=== PATIENT | male | born 1935 | race Caucasian/White ===

== ENCOUNTER 2020-09-20 16:20 | Inpatient (IN) ==
[2020-09-20] MEDS ORDERED: NS 0.9% 1000 ml BAG 1,000 ML IV ONE (18:16)
[2020-09-20] MEDS ORDERED: Labetalol IV 5 MG/ML 20 ml VIAL IV PUSH ONE ×2 (18:20→20:29)
[2020-09-20 18:35] LABS: ABS Eosinophils 0.1 10^3/ul (0-0.6); ABS Lymphocytes 0.6 10^3/ul (1.0-4.8); ABS Monocytes 0.4 10^3/ul (0-0.8); ABS Neutrophils 3.3 10^3/ul (1.5-7.7); Eosinophil % 1.2 %; Hematocrit 39 % (42-52); Hemoglobin 13.3 g/dL (14.0-18.0); Lymphocyte % 13.4 %; Mean Corpuscular HGB Conc 34 g/dL (31-36); Mean Corpuscular Hemoglobin 30 pg (27-31); Mean Corpuscular Volume 89 fL (80-94); Mean Platelet Volume 8.4 fL (7.4-10.4); Nucleated Red Blood Cells % 0.2; Platelet Count 167 10^3/uL (150-450); Red Blood Count 4.43 10^6 /uL (4.18-5.48); Red Cell Distribution Width 14 % (10-15); White Blood Count 4.4 10^3/uL (3.5-10.8)
[2020-09-20 18:43] LABS: Albumin 4.4 g/dL (3.2-5.2); Albumin/Globulin Ratio 1.5 (1-3); Calcium 9.5 mg/dL (8.6-10.3); EGFR African American 58.8 (>60); EGFR Non-African American 48.6 (>60); Magnesium 2.1 mg/dL (1.9-2.7); Potassium 3.8 mmol/L (3.5-5.0); Total Bilirubin 0.6 mg/dL (0.2-1.0); Total Protein 7.4 g/dL (6.4-8.9)
[2020-09-20 18:44] LABS: Troponin I 0.01 ng/mL (<0.03)
[2020-09-20 19:18] LABS: TSH Ultra Thyroid Stim Horm 3.77 mcIU/mL (0.34-5.60)
[2020-09-20] MEDS ORDERED: Iodixanol (CONTRAST) 320 MG/ML 100 ML SDV IV ONE (19:53)
[2020-09-20] MEDS ORDERED: Morphine 2 MG/ML SYRINGE IV PRN (22:38)
[2020-09-20] MEDS ORDERED: Ondansetron 4 mg VIAL 2 MG/ML 2 ml VIAL IV PRN (23:44)
[2020-09-20] MEDS ORDERED: NS 0.9% 1000 ml BAG 1,000 ML IV SCH (23:45)
[2020-09-21 01:43] LABS: Urine Appearance Clear; Urine Bilirubin Negative (Negative); Urine Blood Negative (Negative); Urine Color Yellow; Urine Glucose 1+(50 mg/dL) (Negative); Urine Ketones Negative (Negative); Urine Nitrite Negative (Negative); Urine Protein 3+(>=500 mg/dL) (Negative); Urine Specific Gravity 1.018 (1.002-1.030); Urine Urobilinogen Negative (Negative)
[2020-09-21 01:52] LABS: Urine Bacteria 1+ (Absent); Urine Red Blood Cell 1+(3-5/hpf) (Absent); Urine White Blood Cell Trace(0-5/hpf) (Absent)
[2020-09-21] MEDS: Acetaminophen IV 1 GM/100ML 100 ML IV SCH ×4 (04:39→21:36)
[2020-09-21 05:09] LABS: ABS Monocytes 0.7 10^3/ul (0-0.8); ABS Neutrophils 4.4 10^3/ul (1.5-7.7); Eosinophil % 0.3 %; Hematocrit 38 % (42-52); Hemoglobin 12.9 g/dL (14.0-18.0); Lymphocyte % 16.3 %; Mean Corpuscular HGB Conc 34 g/dL (31-36); Mean Corpuscular Hemoglobin 30 pg (27-31); Mean Corpuscular Volume 90 fL (80-94); Mean Platelet Volume 8.7 fL (7.4-10.4); Platelet Count 172 10^3/uL (150-450); Red Blood Count 4.28 10^6 /uL (4.18-5.48); Red Cell Distribution Width 14 % (10-15); White Blood Count 6.2 10^3/uL (3.5-10.8)
[2020-09-21 05:28] LABS: Calcium 9.1 mg/dL (8.6-10.3); EGFR Non-African American 55.4 (>60); Potassium 3.7 mmol/L (3.5-5.0)
[2020-09-21] MEDS ORDERED: Labetalol IV 5 MG/ML 20 ml VIAL IV PUSH PRN (17:47)
[2020-09-22] MEDS ORDERED: hydrALAZINE 20 mg/ml 1 ML Vial IV IV SLOW PU ONE (03:05)
[2020-09-22 05:10] LABS: Calcium 9.1 mg/dL (8.6-10.3); EGFR African American 62.4 (>60); EGFR Non-African American 51.5 (>60); Potassium 3.6 mmol/L (3.5-5.0)
[2020-09-22] MEDS ORDERED: Labetalol IV 5 MG/ML 20 ml VIAL IV PUSH ONE (07:53)
[2020-09-22 16:44] VITALS: BP 126/72
== END 2020-09-22 18:10 | disposition home or self-care (01) | DRG 552 ==
LOC: ED 16:20 → SSU 09-21 01:50
PROVIDERS: ADMIT Internal Medicine; ATTEND Internal Medicine